=== PATIENT | male | born 1950 | race Asian ===

== ENCOUNTER 2024-01-30 00:54 | Emergency (ER) | payer MEDICARE, OTHER, SELFPAY ==
[2024-01-30 00:55] VITALS: BP 158/102
[2024-01-30 01:18] VITALS: BMI 26.0
[2024-01-30 01:44] LABS: % Basophils 0.4 % (0-2); % Eosinophils 0.5 % (0-6); % Immature Granulocytes 0.5 % (0-0.5); % Lymphocytes 7.9 % (20.5-51.1); % Monocytes 5.6 % (1.7-9.3); % Neutrophils 85.1 % (42.2-75.2); Absolute Basophils 0.1 10^3/uL (0-0.2); Absolute Eosinophils 0.1 10^3/uL (0-0.7); Absolute Immature Granulocytes 0.1 10^3/uL (0-0.05); Absolute Lymphocytes 1.3 10^3/uL (1.2-3.4); Absolute Neutrophils 14.3 10^3/uL (1.4-6.5); Hematocrit 35.9 % (39.0-52.0); Hemoglobin 12.9 g/dL (13.0-18.0); Mean Corp Hgb Conc. 35.9 g/dL (33.0-37.0); Mean Corpuscular Hgb 31.4 pg (27.0-31.0); Mean Corpuscular Volume 87.3 fL (80.0-94.0); Mean Platelet Volume 9.9 fL (7.4-10.4); Nucleated Red Blood Cells % 0 % (-); Platelet Count 200 10^3/uL (130-400); Red Blood Cell Count 4.11 10^6/uL (4.70-6.10); Red Cell Dist. Width 13.3 % (11.5-14.5); Urine Albumin Negative (Neg - Trace); Urine Bilirubin Negative (Negative); Urine Character Clear (Clear); Urine Color Yellow; Urine Glucose Negative (Negative); Urine Ketone Negative (Negative); Urine Leukocyte Negative (Negative); Urine Nitrite Negative (Negative); Urine Occult Blood Negative (Negative); Urine Urobilinogen Negative (Neg - 1+); White Blood Cell Count 16.8 10^3/uL (4.8-10.8)
--- NOTE | 2024-01-30 01:57 | ED.GENMED ---
History of Present Illness
General
Chief Complaint: Flank Pain
Source: patient
Exam Limitations: none
Time Seen by Provider: 01/30/24 01:42
History of Present Illness
History of Present Illness:
73-year-old male presents complaining of abdominal pain that radiates to the back. Mainly on the right side but does happen on the left as well. Comes and goes. He was nauseous but no vomiting. No fever. No chest pain or shortness of breath.
He feels bloated. No prior abdominal surgical history. He states he has a history of kidney stones and is not sure if this feels similar.
Past History
Past History
ED Past Medical History: GERD and Other (Gout)
Social History
Tobacco: Non-smoker
Alcohol: None
Personal:
Phy Exam
Physical Exam
Physical Exam:
General: Well-appearing male no acute respiratory distress
HEENT: Normocephalic atraumatic
Heart: Regular rate and rhythm no murmur
Lungs: Clear no wheeze
Abdomen: Soft tender in the mid and epigastric area and slightly over the right costovertebral angle. No guarding or rebound normal bowel sounds
Extremities: No cyanosis
Skin: Warm no rash
Course
Orders/Labs/Results
Orders:
Orders
01/30/24 01:32
Complete Blood Count/With Diff Urgent
Comprehensive Metabolic Panel Urgent
Lipase Urgent
Urinalysis Reflex To Culture Urgent
Date Specimen was Collected: 01/30/24
Time Specimen was Collected: 01:26
01/30/24 01:49
CT Abd/pel Without Iv Or Oral Urgent
Comment:
Reason For Exam: flank pain
Abnormal Lab Results
01/30/24
01:32
WBC 16.8 H 10^3/uL
(4.8-10.8)
RBC 4.11 L 10^6/uL
(4.70-6.10)
Hgb 12.9 L g/dL
(13.0-18.0)
Hct 35.9 L %
(39.0-52.0)
MCH 31.4 H pg
(27.0-31.0)
Abs Immat Gran (auto) 0.1 H 10^3/uL
(0-0.05)
Absolute Neuts (auto) 14.3 H 10^3/uL
(1.4-6.5)
Absolute Monos (auto) 1.0 H 10^3/uL
(0.1-0.6)
Neutrophils % 85.1 H %
(42.2-75.2)
Lymphocytes % 7.9 L %
(20.5-51.1)
Chloride 111 H mmol/L
(98-107)
BUN 22 H mg/dl
(9-20)
Glucose 106 H mg/dl
(70-99)
01/30/24 01:32
01/30/24 01:32
Vital Signs
Initial and Last Documented VS:
Initial Vital Signs
Temp Pulse Resp BP Pulse Ox
98 F 94 22 158/102 96
01/30/24 00:55 01/30/24 00:55 01/30/24 00:55 01/30/24 00:55 01/30/24 00:55
Last Documented Vital Signs
Temp Pulse Resp BP Pulse Ox
98 F 94 22 158/102 96
01/30/24 00:55 01/30/24 00:55 01/30/24 00:55 01/30/24 00:55 01/30/24 00:55
MDM/Problems Addressed
Differential Diagnosis Includes:
Abdominal pain. Consider gastritis versus pancreatitis versus biliary or renal colic.
Labs pending CT pending. Patient states that his pain is slightly better from the onset. He declined pain medicine this time
*Critical Care Note
Total Time (30-74mins, 75-104mins- exclusive of procedures): Not Applicable
Update Note
Update Note:
CT demonstrates no obvious acute finding. The bladder wall is thickened of the urinary bladder to suggest possible cystitis however patient has no clinical symptoms consistent with cystitis. His urinalysis is negative. Patient is feeling
improved. Suspect possible viral illness. Will prescribe Zofran and PPI. Stable for discharge home.
ED Attending Note
-
Portions of this chart may have been created with voice recognition software.� Occasional wrong word or��sound alike� substitutions may have occurred due to the inherent limitations of voice recognition software.
Discharge Plan
Departure
Patient Disposition: Home (Routine Discharge)
Date of Disposition: 01/30/24
Time of Disposition: 02:44
Patient with high blood pressure during this ER visit?: No
Discharge Problem:
Abdominal pain
Instructions: Abdominal Pain
Prescriptions:
New
ondansetron 4 mg tablet,disintegrating
4 mg PO Q8H PRN (Reason: nausea and vomiting) Qty: 10 0RF
pantoprazole [Protonix] 40 mg tablet,delayed release (DR/EC)
40 mg PO DAILY Qty: 14 0RF
No Action
allopurinol 100 MG tablet
100 mg PO Daily
pantoprazole 40 MG tablet,delayed release (DR/EC)
40 mg PO DAILY
docosahexaenoic acid-epa 1 CAP capsule
1 cap PO DAILY
cholecalciferol (vitamin D3) 2,000 UNITS tablet
2,000 units PO DAILY
losartan 50 mg Tablet
50 mg PO DAILY
ketorolac 0.5 % Drops
1 drp LEFT EYE QID
brimonidine 0.2 % Drops
1 drp BOTH EYES DAILY
dorzolamide 2 % Drops
1 drp BOTH EYES BID
Referrals:
PRIVATE,PHYSICIAN [Family Provider] -
Interventions
Interventions:
*Risk Screen - Suicide Last Done: 01/30/24 00:55
*General Assessment Last Done: 01/30/24 01:33
*Neglect/Abuse Screening Last Done: 01/30/24 00:55
ED- Fall Risk Assessment Last Done: 01/30/24 01:33
*ED COVID-19 Vaccine History Last Done: 01/30/24 01:33
QS-Fzfrdc-Adqpbgkltv Assessment Last Done: 01/30/24 01:30
ED-Male Genitourinary Assessment Last Done: 01/30/24 01:30
ED-Musculoskeletal Assessment Last Done: 01/30/24 01:30
Discharge Date and Time
Print Language: [id number]
[2024-01-30 01:58] LABS: ALT (SGPT) 22 U/L (0-50); AST (SGOT) 31 U/L (17-59); Alkaline Phosphatase 84 U/L (38-126); Blood Urea Nitrogen 22 mg/dl (9-20); Carbon Dioxide 22 mmol/L (22-30); Chloride 111 mmol/L (98-107); Estimated Creatinine Clearance 56 ml/min; Glucose 106 mg/dl (70-99); Lipase 163 U/L (23-300); Potassium 3.5 mmol/L (3.5-5.1); Sodium 141 mmol/L (135-145); Total Bilirubin 0.4 mg/dl (0.2-1.3); Total Protein 6.7 g/dl (6.3-8.2); eGFR > 60.00
[2024-01-30 03:00] VITALS: BP 147/88
== END 2024-01-30 03:00 | disposition home or self-care (01) ==
LOC: EMR 00:54
PROVIDERS: Emergency Medicine; EMERGENCY PHYSICIAN Student in an Organized Health Care Education/Training Program
DX: R10.9 Unspecified abdominal pain (principal); K21.9 Gastro-esophageal reflux disease without esophagitis; I25.10 Atherosclerotic heart disease of native coronary artery without angina pectoris; Z87.442 Personal history of urinary calculi
CPT/HCPCS: 99284; 74176; 80053; 81003; 83690; 85025